=== PATIENT | female | born 2000 | race Hispanic/Latino ===

== ENCOUNTER 2023-11-01 21:45 | Outpatient (CLI) | payer MEDICAID, SELFPAY ==
[2023-11-01] VITALS (18 sets, daily range): BP systolic 104–126; BP diastolic 56–71; PULSE 81–114; RESP 14; TEMP 36.7; O2SAT 99–100
[2023-11-01 22:35] LABS: Basophils Percent Auto 0.2 % (0.2-1.2); Eosinophils Absolute Auto 0.1 K/mm3 (0-0.3); Eosinophils Percent Auto 0.9 % (0-4.4); Hematocrit 31.2 % (37.0-47.0); Hemoglobin 10.2 g/dL (12.0-15.0); Immature Granulocyte Absolute 0.07 K/mm3 (0.00-0.031); Immature Granulocyte Percent A 0.8 % (0-0.5); Lymphocytes Absolute Auto 1.92 K/mm3 (0.9-3.2); Lymphocytes Percent Auto 20.7 % (18.3-44.2); Mean Corpuscular HGB Conc 32.7 g/dl (32-36); Mean Corpuscular Hemoglobin 33.2 pg (26-34); Mean Corpuscular Volume 101.6 fl (80-100); Mean Platelet Volume 10.3 fl (7.4-10.4); Monocytes Absolute Auto 0.7 K/mm3 (0.1-0.6); Neutrophils Absolute Auto 6.4 K/mm3 (1.3-6.7); Neutrophils Percent Auto 69.4 % (45.5-73.1); Platelet Count Result 287 k/mm3 (150-375); Red Blood Count 3.07 M/mm3 (4.2-5.4); Red Cell Distribution Width 12.8 % (11.5-14.5); White Blood Count 9.3 K/mm3 (4.5-10.0)
[2023-11-01 22:39] LABS: Appearance Urine Clear (Clear); Bacteria Urine None Seen /hpf; Bilirubin Urine Negative (Negative); Blood Urine Negative (Negative); Color Urine Yellow (Yellow); Glucose Urine UA Negative (Negative); Ketones Urine Negative (Negative); Leukocyte Esterase Ur Trace LEU/UL (Negative); Nitrate Urine Negative (Negative); Non Pathogenic Casts 0-2; Protein Urine Negative (Negative); RBC Urine 0-2 /hpf (0-2); Specific Grav Ur 1.015 (1.001-1.035); Squamous Epithelial Cell Urine Occasional /hpf (Few); Urobilinogen Urine 0.2 mg/dL (<2.0); WBC Urine 0-5 /hpf; pH Urine 6.5 (5.0-9.0)
[2023-11-01 22:47] LABS: Creatinine Urine 68.2 mg/dL; Total Protein Urine Random 13 mg/dL; Ur Ttl Prot Creatinine Ratio 0.19 mg/mg (0-0.20)
[2023-11-01 22:53] LABS: Add Urine Microscopic? YES
[2023-11-01 23:21] LABS: Alanine Aminotransferase 15 U/L (6-35); Albumin Level 3.5 g/dL (3.5-5.1); Alkaline Phosphatase 59 U/L (38-126); Anion Gap 6 mmol/L (8-16); Aspartate Amino Transferase 26 U/L (14-36); Bilirubin,Total 0.5 mg/dL (0.2-1.3); Blood Urea Nitrogen 8 mg/dL (7-17); Carbon Dioxide 20 mmol/L (22-30); Chloride 109 mmol/L (98-107); Estimated Glomerular Filt Rate > 60; Glucose 110 mg/dL (65-110); Potassium 3.8 mmol/L (3.4-5.0); Sodium 135 mmol/L (137-145); Uric Acid 3.6 mg/dL (2.5-7.5)
== END 2023-11-01 23:30 ==
LOC: ANHOBPP 21:56 → ANHOBOP 11-02 06:48 → ANHOBPP 11-02 06:49
PROVIDERS: Advanced Practice Midwife; Visit Provider Obstetrics & Gynecology
DX: O13.9 Gestational [pregnancy-induced] hypertension without significant proteinuria, unspecified trimester (principal); Z3A.00 Weeks of gestation of pregnancy not specified
CPT/HCPCS: 36415; 80053; 81001; 82570; 84156; 84550; 85025; 99199

== ENCOUNTER 2024-02-18 06:36 | Inpatient (IN) | payer OTHER, SELFPAY ==
[2024-02-18] VITALS (167 sets, daily range): BP systolic 73–162; BP diastolic 31–135; PULSE 29–259; RESP 16–20; TEMP 35.8–36.8; O2SAT 75–100; BMI 37.1
[2024-02-18 08:21] LABS: Basophils Percent Auto 0.3 % (0.2-1.2); Eosinophils Absolute Auto 0.1 K/mm3 (0-0.3); Eosinophils Percent Auto 0.5 % (0-4.4); Hematocrit 34.6 % (37.0-47.0); Hemoglobin 11.6 g/dL (12.0-15.0); Immature Granulocyte Absolute 0.06 K/mm3 (0.00-0.031); Immature Granulocyte Percent A 0.6 % (0-0.5); Lymphocytes Absolute Auto 1.92 K/mm3 (0.9-3.2); Lymphocytes Percent Auto 18.9 % (18.3-44.2); Mean Corpuscular HGB Conc 33.5 g/dl (32-36); Mean Corpuscular Hemoglobin 32.8 pg (26-34); Mean Corpuscular Volume 97.7 fl (80-100); Mean Platelet Volume 10.7 fl (7.4-10.4); Monocytes Absolute Auto 0.6 K/mm3 (0.1-0.6); Monocytes Percent Auto 6.1 % (2.6-8.5); Neutrophils Absolute Auto 7.5 K/mm3 (1.3-6.7); Neutrophils Percent Auto 73.6 % (45.5-73.1); Platelet Count Result 275 k/mm3 (150-375); Red Blood Count 3.54 M/mm3 (4.2-5.4); White Blood Count 10.2 K/mm3 (4.5-10.0)
--- NOTE | 2024-02-18 08:39 | LDADM ---
This patient, Lola Butler, was admitted to Labor/Delivery/Recovery 104 on 02/18/24 at 06:36. Plans for labor, pain management and were discussed with patient. Patient/family oriented to hospital policies and general routines including ID bracelet, bed and alarms, visiting hours, pain management, procedures, bathroom and other care routines, personal items, smoking policy, room service/diet and guest tray routines, security routines, and visiting hours. Patient/Family are encouraged to report perceived risks to care and to ask questions if they do not understand what they are told or what they should do. See OBIX for further documentation.
[2024-02-18 09:11] LABS: HIV 1/2 Ab P24 Ag Result Negative (Negative)
[2024-02-18 10:32] LABS: Hepatitis B Surface Antigen Negative (Negative); Rubella IgG Antibody 22.2 IU/ML
--- NOTE | 2024-02-18 12:48 | WPDANESEPP ---
Anes - Eval Pre Procedure Procedure: Labor epidural Date/Time: 02/18/24 12:48 Surgeon: Jamey Preop Diagnosis: Pain during labor Pre Op Diagnosis: labor Patient Data Age: 23 Gender: F Height: 1.57 m Weight: 92.2 kg Last Vital Signs Temp 35.8 C L 02/18/24 12:30 Pulse 92 02/18/24 12:26 Resp 20 02/18/24 12:30 BP 121/88 02/18/24 12:26 O2 Del Method Room Air 02/18/24 08:25 Allergies Allergy/AdvReac Type Severity Reaction Status Date / Time No Known Allergies Allergy Verified 11/01/23 22:43 Home Medications Medication Instructions Recorded Confirmed Type vits no.126-ferrous fum 1 tablet PO DAILY 11/01/23 02/18/24 History 28 mg iron-folic acid 800 mcg tablet (Classic ) Laboratory Tests 02/18/24 02/18/24 08:02 08:15 WBC 10.2 H K/mm3 (4.5-10.0) RBC 3.54 L M/mm3 (4.2-5.4) Hgb 11.6 L g/dL (12.0-15.0) Hct 34.6 L % (37.0-47.0) MCV 97.7 fl (80-100) MCH 32.8 pg (26-34) MCHC 33.5 g/dl (32-36) RDW 13.0 % (11.5-14.5) Plt Count 275 k/mm3 (150-375) MPV 10.7 H fl (7.4-10.4) Immature Gran % (Auto) 0.6 H % (0-0.5) Neut % (Auto) 73.6 H % (45.5-73.1) Lymph % (Auto) 18.9 % (18.3-44.2) Edgar % (Auto) 6.1 % (2.6-8.5) Eos % (Auto) 0.5 % (0-4.4) Baso % (Auto) 0.3 % (0.2-1.2) Lymph # (Auto) 1.92 K/mm3 (0.9-3.2) Edgar # (Auto) 0.6 K/mm3 (0.1-0.6) Eos # (Auto) 0.1 K/mm3 (0-0.3) Baso # (Auto) 0.0 K/mm3 (0.0-0.1) Abs Immat Gran (auto) 0.06 H K/mm3 (0.00-0.031) Absolute Neuts (auto) 7.5 H K/mm3 (1.3-6.7) Absolute Nucleated RBC 0.000 K/mm3 (0.0-0.012) Nucleated RBC % 0.0 % (0.0-0.2) RPR Pending Hep Bs Antigen Negative (Negative) HIV 1&2 Ab/P24 Ag 4thGn Negative (Negative) Rubella IgG Antibody 22.2 IU/ML (10 - ) Blood Type O Positive Antibody Screen Negative Patient hx anesthesia problems: none Family hx anesthesia problems: none Results Review: All pre-operative results and documents have been reviewed as part of the pre-operative evaluation. [facility] Family History Family History Grandparent Myocardial infarction Mother Hypertension Father Myocardial infarction Social History Social History Smoking status: Never smoker Second hand tobacco smoke exposure: No Substance use: former Do You Feel Safe in your Home?: Yes Lack of Transportation: No Lack of Food: Never True Current Housing: I Have Housing Concerned About Future Housing: No Difficulty Paying Gas/Electric Bills: No Difficulty Paying for Meds: No Currently Unemployed: No Education: High School Diploma/GED Difficulty w/ Childcare or Family Care: No Spiritual care concerns: No Exam Day of Procedure 02/18/24 12:48 Patient weight: obese Heart: regular rate and rhythm Lungs: clear to auscultation Airway: Mallampati scale class II Neurological: alert and oriented
[2024-02-18] MEDS: LACTATED RINGERS 1,000 ML 125 ML IV CONT ×2 (14:40→15:41)
--- NOTE | 2024-02-18 19:24 | PM.IMHP ---
H&P: HPI History of Present Illness Date/Time: 02/18/24 19:24 Chief Complaint: SROM Narrative: Patient is a 23 year old at 39w1d who presents after a large gush of clear fluid at 0521 this morning. She reports painful contractions starting shortly afterwards. She denies vaginal bleeding or decreased movement. Her has been uncomplicated. Denies nausea, vomiting, headaches, dysuria. Review of Systems Review of Systems: All systems reviewed & are unremarkable except as noted in HPI and below PMFSH Family History Family History Grandparent Myocardial infarction Mother Hypertension Father Myocardial infarction Social History Social History Smoking status: Never smoker Second hand tobacco smoke exposure: No Substance use: former Do You Feel Safe in your Home?: Yes Lack of Transportation: No Lack of Food: Never True Current Housing: I Have Housing Concerned About Future Housing: No Difficulty Paying Gas/Electric Bills: No Difficulty Paying for Meds: No Currently Unemployed: No Education: High School Diploma/GED Difficulty w/ Childcare or Family Care: No Spiritual care concerns: No Meds Home Medications and Allergies Home Medications Medication Instructions Recorded Confirmed Type vits no.126-ferrous fum 1 tablet PO DAILY 11/01/23 02/18/24 History 28 mg iron-folic acid 800 mcg tablet (Classic ) Allergies Allergy/AdvReac Type Severity Reaction Status Date / Time No Known Allergies Allergy Verified 11/01/23 22:43 Vital Signs Vital Signs - 24 hr 02/18/24 08:25 02/18/24 07:39 02/18/24 07:45 Temperature Pulse Rate 88 82 Respiratory Rate Blood Pressure 133/77 133/66 Pulse Oximetry Oxygen Delivery Room Air 02/18/24 08:16 02/18/24 08:30 02/18/24 09:01 Temperature 96.8 F L Pulse Rate 117 H 91 Respiratory Rate 18 Blood Pressure 98/60 L 92/74 L 160/135 H Pulse Oximetry Oxygen Delivery 02/18/24 09:44 02/18/24 09:47 02/18/24 07:30 Temperature 96.9 F L Pulse Rate 95 103 H Respiratory Rate 18 Blood Pressure 162/131 H 105/82 Pulse Oximetry Oxygen Delivery 02/18/24 10:33 02/18/24 11:39 02/18/24 11:45 Temperature 96.8 F L 96.7 F L Pulse Rate 118 H 93 102 H Respiratory Rate 18 18 Blood Pressure 132/74 121/76 123/73 Pulse Oximetry Oxygen Delivery 02/18/24 09:30 02/18/24 12:26 02/18/24 12:30 Temperature 97 F L 96.5 F L Pulse Rate 92 Respiratory Rate 20 20 Blood Pressure 121/88 Pulse Oximetry Oxygen Delivery 02/18/24 13:19 02/18/24 14:15 02/18/24 14:30 Temperature 96.8 F L 97 F L Pulse Rate 93 59 L 106 H Respiratory Rate 20 20 Blood Pressure 123/51 L 107/83 124/76 Pulse Oximetry Oxygen Delivery 02/18/24 15:00 02/18/24 15:01 02/18/24 15:04 Temperature Pulse Rate 109 H 91 Respiratory Rate Blood Pressure 149/117 H 147/127 H Pulse Oximetry 87 L Oxygen Delivery 02/18/24 15:05 02/18/24 15:10 02/18/24 15:13 Temperature Pulse Rate 158 H 106 H 102 H Respiratory Rate Blood Pressure 143/126 H 131/79 144/65 H Pulse Oximetry 97 97 Oxygen Delivery 02/18/24 15:14 02/18/24 15:15 02/18/24 15:18 Temperature Pulse Rate 96 88 92 Respiratory Rate Blood Pressure 120/64 127/68 125/62 Pulse Oximetry 96 Oxygen Delivery 02/18/24 15:20 02/18/24 15:21 02/18/24 15:24 Temperature Pulse Rate 85 90 Respiratory Rate Blood Pressure 119/61 118/64 Pulse Oximetry 97 Oxygen Delivery 02/18/24 15:25 02/18/24 15:27 02/18/24 15:30 Temperature Pulse Rate 90 91 Respiratory Rate Blood Pressure 121/50 L 118/57 L Pulse Oximetry 98 97 Oxygen Delivery 02/18/24 15:33 02/18/24 15:35 02/18/24 15:36 Temperature Pulse Rate 82 106 H Respiratory Rate Blood Pressure 115/54
[2024-02-18] MEDS: LACTATED RINGERS 500 ML 999 ML IV CONT (19:30)
[2024-02-18] MEDS: diphenhydrAMINE HCl INJ 50 MG/ML VIAL 25 MG IV PUSH (19:31)
[2024-02-18] MEDS: ONDANSETRON INJ 4 MG/2 ML VIAL IV PUSH (21:04)
--- NOTE | 2024-02-18 22:41 | PM.OBPRVD ---
OB - Vaginal Delivery Note Procedure Delivery date: 02/18/24 Induction method: None Delivery monitor: External FHT and External Uterine Route of delivery: Episiotomy description: None Laceration Description: Perineal - 2nd Degree Delivery repair: vicryl Specimen: No Quantitative Blood Loss (ml): 150 Anesthesia type: Epidural Disposition: Floor Complications: Other complications (shoulder dystocia lasting 15 seconds) Narrative: See H&P and notes for details on patient's admission and labor. She progressed to complete cervical dilation and at the appropriate time began pushing. With adequate expulsive efforts by the mother, the baby's head was delivered without difficulty. Nuchal cord was not present. The baby's right shoulder was anterior but did not deliver easily. The patient was placed in McRobert's position and suprapubic pressure was applied. The shoulder dystocia then resolved and the right shoulder delivered under the pubic symphysis. The posterior shoulder and the rest of the baby delivered without difficulty. The umbilical cord was doubly clamped and cut after 10 minutes of delayed cord clamping. Care of the was then assumed by the nursing staff. Baby Date of : 02/18/24 Weeks of gestation at delivery: 39 Infant gender: Female presentation: vertex position: Left Occiput Anterior Placenta delivery description: Expressed Cord Vessel Description: 3 Vessels
--- NOTE | 2024-02-19 00:53 | PC.NURSE ---
Patient transferred to post room #282 via (W/C ). Support person present. Oriented to unit, room, information board, rooming in, admission packet and security measures. Patient verbalizes understanding.
[2024-02-19 01:06] VITALS: BP 112/66; PULSE 104; RESP 16; TEMP 36.9; O2SAT 96
[2024-02-19 05:14] VITALS: BP 107/64; PULSE 98; RESP 16; TEMP 36.9; O2SAT 98
[2024-02-19 05:57] LABS: Hematocrit 29.1 % (37.0-47.0); Hemoglobin 9.7 g/dL (12.0-15.0)
[2024-02-19 07:30] VITALS: BP 119/68; PULSE 95; RESP 16; TEMP 36.7; O2SAT 98
--- NOTE | 2024-02-19 08:31 | PM.OBPNVD ---
OB - PN: Subj Subjective Date/time seen: 02/19/24 08:31 Patient comments: no complaints, pain well controlled, incisional pain, tolerating diet and flatus present OB - PN: Obj Data Labs 02/19/24 05:48 Labs: Laboratory Results - last 24 hr 02/18/24 02/18/24 02/19/24 08:02 08:15 05:48 Hgb 9.7 L Hct 29.1 L Hep Bs Antigen Negative HIV 1&2 Ab/P24 Ag 4thGn Negative Rubella IgG Antibody 22.2 Blood Type O Positive Antibody Screen Negative OB - PN A/P Plan day: 1 Plan: routine care Comments: No problems, routine care Time Spent With Patient Time: Total time spent is greater than 50% in coordination of care (as documented) at patient's floor/unit and/or counseling patient: Exam Const: General: comfortable, no acute distress and alert Resp: Effort & Inspection: normal respiratory effort Auscultation: no crackles, no rales and no rhonchi Cardio: Rate: regular rate Heart sounds: no click, no murmurs and no rubs GI: Inspection: non-distended GI Palp: No Tenderness to palpation present (GI) Auscultation: normal bowel sounds Other: Incision - CDI Extrem: General: normal to inspection, no pedal edema and no calf tenderness
[2024-02-19] MEDS: DOCUSATE SODIUM 100 MG CAPSULE PO ×2 (08:36→17:05)
[2024-02-19] MEDS: POLYSACCHARIDE IRON COMPLEX 150 MG CAPSULE PO ×2 (08:36→17:05)
[2024-02-19] MEDS: MULTIVIT/MIN/PREN/FOL AC/IRON TABLET 1 TAB PO (08:36)
[2024-02-19 11:50] LABS: Rapid Plasma Reagin Non-Reactive (NonReactive)
--- NOTE | 2024-02-19 13:00 | PC.NURSE ---
Breast pump provided due to ineffective feedings. Instructions given on cleaning, care, usage, that there should be no pain, pumping schedule for milk production, collection, and storage of human milk. Patient was assessed for correct placement, flange size, to pump for comfort and nipple stretching/stimulation for adequate milk production every 3 hours (8 times in 24 hours) 1-2 times at night.
--- NOTE | 2024-02-19 15:30 | PC.NURSE ---
[id number] Introductions were made, then consulted with patient to assess needs related to . Mother led the conversation with her?plans to feed?her infant and the?experience so far. Encouraged understanding of the benefits of skin to skin (demonstrating unwrapping and placing upright on her chest), stimulating with massage touch, changing positions to encourage wakefulness, how to watch for early feeding cues, responsive feeding, feeding on demand (aiming for 8-12 times in 24 hours, about every 2-3 hours), milk production, building/maintaining a milk supply, duration of feeding, signs of adequate intake/output and how to record on the feeding sheet. Mother works well with her with encouragement and education. is reluctant to breastfeed at just a little under 12 hours old. demonstrates spitty and gagging behaviors indicating there's fluid from delivery that remains in the gut possibly. Infant is alert and awake. Mother demonstrates hand expression and finger feeds colostrum to her infant. Reviewed positioning and ear, shoulder, hip alignment, supporting the breast to facilitate a deep latch, asymmetrical latch (off-center), leading with the chin with a big, open, wide gape and body close to mother. Infant was unable to maintain latch without pain to mother as infant opens mouth about 90 degrees and misshaped nipple with a shallow latch. Reviewed comfort measures of healing with a warm, wet washcloth to rinse breast, then leave open to air-dry, good handwashing when or touching the breast/nipples to prevent infection. spit up clear fluid at the end of the consult. remains [id number] upright on mothers chest/breast. Mother voiced understanding of skin to skin, stimulating with massage touch, responsive feedings, hand expressed colostrum, talking to to encourage if it has been 2 -2.5 hours since the start of the last , to call if infant does not latch, or if there is discomfort with . Resources used for education were facilitated with the visual educational handouts/ tool/mom and baby guide. Inpatient/outpatient resources provided with feeding sheet, name written on the communication board, and the mom/baby guide. Mother voiced understanding of information, demonstrated learning and will call if there is a request for assistance. Reported to the Primary RN. 1215 - Purposefully rounded to assess for needs. Mother wants to attempt on her own and will call if services are needed.
[2024-02-19 16:50] VITALS: BP 119/70; PULSE 90; RESP 16; TEMP 36.8; O2SAT 97
[2024-02-19 20:28] VITALS: BP 123/62; PULSE 62; RESP 18; TEMP 37; O2SAT 98
[2024-02-20 07:35] VITALS: BP 101/66; PULSE 82; RESP 16; TEMP 37.2; O2SAT 99
[2024-02-20] MEDS: IBUPROFEN 600 MG TABLET PO (07:38)
[2024-02-20] MEDS: POLYSACCHARIDE IRON COMPLEX 150 MG CAPSULE PO (07:38)
[2024-02-20] MEDS: DOCUSATE SODIUM 100 MG CAPSULE PO (07:39)
[2024-02-20] MEDS: MULTIVIT/MIN/PREN/FOL AC/IRON TABLET 1 TAB PO (07:39)
--- NOTE | 2024-02-20 10:12 | PC.NURSE ---
[id number] Consulted with mother concerning needs and she shared her ability to independently latch infant optimally without pain. Mother is feeding appropriately for growth of infant and understands stimulating to eat if needed. Infant has had appropriate feedings in the last 24 hours meets the outcomes for weight, output, blood sugar and jaundice at this time. Reinforced understanding of milk production, transition of milk, signs of adequate intake, transition of stool, prevention/relief of engorgement, plugged ducts, mastitis, responsive watching for feeding cues, the different methods of stimulating to breastfeed 1-3 hours after the start of the last feeding, community resources (outpatient resources reviewed), and when to call a provider using the resource of the feeding sheet along with the mom and baby guide. Parents were encouraged and mother plans to supplement her infant until her milk is to full volume. Mother voiced understanding of the information shared, is confident to continue effectively her at home with supplementing, when to call for assistance, denies any additional assistance or education at this time.
--- NOTE | 2024-02-20 10:42 | PM.OBPNVD ---
OB - PN: Subj Subjective Date/time seen: 02/20/24 10:42 Interval history: PPD#2 Doing well, soreness improving , supplementing some; working on latching Bleeding minimal Voiding without issue Ready for discharge today OB - PN: Obj Data Labs 02/19/24 05:48 Labs: Laboratory Results - last 24 hr 02/18/24 08:02 RPR Non-reactive OB - PN A/P Assessment and Plan (1) (spontaneous vaginal delivery): Code(s): O80 - Encounter for full-term uncomplicated delivery Status: Acute Plan day: 2 Plan: routine care and discharge home Time Spent With Patient Time: Total time spent is greater than 50% in coordination of care (as documented) at patient's floor/unit and/or counseling patient: Review of Systems Review of Systems: All systems reviewed & are unremarkable except as noted in HPI and below Exam Const: General: comfortable and no acute distress Resp: Effort & Inspection: normal respiratory effort Extrem: General: normal to inspection, no pedal edema and no calf tenderness
--- NOTE | 2024-02-20 10:44 | PM.OBDSVD ---
DS: Admitting Diagnosis Discharge Date 02/20/24 Admitting Diagnosis Rupture of membranes DS: Discharge Diagnosis Discharge Diagnosis (1) (spontaneous vaginal delivery): Code(s): O80 - Encounter for full-term uncomplicated delivery Status: Acute OB - DS: Summary OB Procedures : None OB Procedures Intrapartum: Spontaneous Vag Delivery OB Procedures: : None Peripartum Data Laceration Description: Perineal - 2nd Degree Episiotomy description: None Time Spent with Patient Time attestation: Total time spent providing and/or coordinating discharge services: DS: Data Data Completed and Pending Labs on day of discharge: Labs from last 24 hours 02/18/24 08:02 RPR Non-reactive Discharge Plan Discharge Attending physician on discharge: Chriss Concepcion Discharging Clinician: Chriss Concepcion Patient Disposition: Home, Self-Care Activity: may shower and pelvic rest Diet: as tolerated Patient Instructions: Antibiotic Form Stand Alone Forms: General Discharge Information Follow-up/Referrals: Chriss Concepcion MD [Physician] - 4 Weeks Discharge Medications: New docusate sodium 100 mg Capsule 100 mg PO BID PRN (Reason: Constipation) Qty: 60 0RF ibuprofen 600 mg Tablet 600 mg PO Q6H PRN (Reason: Cramping) Qty: 30 0RF Continued Classic 28 mg iron- 800 mcg Tablet 1 tablet PO DAILY Date of admission: 02/18/24 06:36 Primary Care Provider: PHYSICIAN,ENVELOPE STAMPING MACHINE OPERATOR Admitting Provider: Chriss Concepcion Attending physician on admission: Chriss Concepcion Condition: Stable
[2024-02-22 11:45] VITALS: BP 107/65; PULSE 95; RESP 18; TEMP 36.7; O2SAT 99
== END 2024-02-20 13:10 | disposition home or self-care (01) | DRG 560 ==
LOC: ANHLDR 08:27 → ANHOB2 02-19 01:09
PROVIDERS: Admitting Provider Obstetrics & Gynecology; Visit Provider Obstetrics & Gynecology
DX: O40.3XX0 Polyhydramnios, third trimester, not applicable or unspecified (principal); O70.1 Second degree perineal laceration during delivery; O66.0 Obstructed labor due to shoulder dystocia; Z3A.39 39 weeks gestation of pregnancy; Z37.0 Single live birth
CPT/HCPCS: 36415; 85014; 85018; 85025; 86592; 86703; 86762; 86850; 86900; 86901; 87340; A9270; G0432; J1200; J2405; J2795; J7120